=== PATIENT | male | born 1960 | race Caucasian/White ===

== ENCOUNTER 2023-06-04 20:58 | Inpatient (IN) | payer BC ==
[~2023-06-04] VITALS: Ht 177.8 cm; Wt 139.9 kg
[2023-06-04 21:00] VITALS: BP 130/78
[2023-06-04] MEDS ORDERED: JARDIANCE10 MG PO (21:39)
[2023-06-04] MEDS ORDERED: LASIX40 MG PO (21:39)
[2023-06-04] MEDS ORDERED: JANUMET XR 1001 EACH PO (21:39)
[2023-06-04] MEDS ORDERED: COLCHICINE0.6 M1 PO (21:40)
[2023-06-04 21:55] LABS: HEMATOCRIT 50.2 % (42.0-52.0); MANUAL DIFF REFLEX YES; MEAN CELL VOLUME 84.9 fl (80.0-94.0); MEAN CORPUSCULAR HGB 27.7 pg (27.0-31.0); MEAN CORPUSCULAR HGB CONC 32.7 g/dl (33.0-37.0); MEAN PLATELET VOLUME 10.3 fl (9.6-12.3); PLATELET COUNT AUTOMATED 187 10*3/uL (130-400); RED BLOOD COUNT 5.91 10*6/uL (4.50-5.90); RED CELL DISTRI WIDTH 12.9 % (0-14.5); WHITE BLOOD COUNT 22.6 10*3/uL (4.8-10.8)
[2023-06-04 22:08] LABS: ACT PARTIAL THROMBO TIME 28.7 SECONDS (20.0-32.1)
[2023-06-04 22:13] LABS: PLATELET SUFFICIENCY NORMAL (NORMAL); TOTAL CELLS COUNTED 100 #CELLS
[2023-06-04 22:15] LABS: POTASSIUM 3.7 mmol/L (3.4-5.1); TOTAL PROTEIN 7.3 gm/dL (6.0-8.0)
[2023-06-04 23:04] LABS: BILIRUBIN Negative (Negative); BLOOD Negative (Negative); CLARITY Clear (Clear); COLOR Yellow (Yellow); GLUCOSE 3+ (Negative); KETONE Negative (Negative); LEUKO ESTERASE Negative (Negative); NITRITE Negative (Negative); PH 5.5 (4.5-8.0); SPECIFIC GRAVITY 1.025 (1.001-1.030); UROBILINOGEN 0.2 E.U./dl (0.0-1.0)
[2023-06-04 23:14] LABS: RBC 0-2 rbc/hpf (0-2)
[2023-06-04 23:20] VITALS: BP 134/84
[2023-06-05] VITALS (7 sets, daily range): BP systolic 114–134; BP diastolic 48–78
[2023-06-05 05:38] LABS: FREE T4 0.96 ng/dl (0.89-1.76); POTASSIUM 3.2 mmol/L (3.4-5.1); TOTAL PROTEIN 5.9 gm/dL (6.0-8.0)
[2023-06-05 06:24] LABS: HEMATOCRIT 45.4 % (42.0-52.0); MEAN CELL VOLUME 86.1 fl (80.0-94.0); MEAN CORPUSCULAR HGB 27.9 pg (27.0-31.0); MEAN CORPUSCULAR HGB CONC 32.4 g/dl (33.0-37.0); PLATELET COUNT AUTOMATED 176 10*3/uL (130-400); RED BLOOD COUNT 5.27 10*6/uL (4.50-5.90); RED CELL DISTRI WIDTH 13.2 % (0-14.5); WHITE BLOOD COUNT 18.4 10*3/uL (4.8-10.8)
[2023-06-05 06:34] LABS: MANUAL DIFF REFLEX YES
[2023-06-05 06:49] LABS: TOTAL CELLS COUNTED 100 #CELLS
[2023-06-05 06:50] LABS: BURR CELLS FEW; PLATELET SUFFICIENCY NORMAL (NORMAL); POLYCHROMASIA SLIGHT; TOXIC GRANULATION SLIGHT; VACUOLATION OF NEUTROPHILS SLIGHT
[2023-06-05 08:00] LABS: ARTERIAL BLOOD GAS PH 7.317 (7.35-7.45)
[2023-06-05 11:39] LABS: ARTERIAL BLOOD GAS PH 7.379 (7.35-7.45)
[2023-06-05 11:40] LABS: ABG BASE EXCESS -6.9 mmol/L (-2.0-2.0)
[2023-06-06] VITALS: BP 107/53
[2023-06-06 06:01] LABS: POTASSIUM 3.8 mmol/L (3.4-5.1)
[2023-06-06 06:24] LABS: MEAN CELL VOLUME 86.5 fl (80.0-94.0); MEAN CORPUSCULAR HGB 27.9 pg (27.0-31.0); MEAN CORPUSCULAR HGB CONC 32.3 g/dl (33.0-37.0); MEAN PLATELET VOLUME 10.9 fl (9.6-12.3); PLATELET COUNT AUTOMATED 158 10*3/uL (130-400); RED BLOOD COUNT 4.51 10*6/uL (4.50-5.90); RED CELL DISTRI WIDTH 13.3 % (0-14.5); WHITE BLOOD COUNT 22.2 10*3/uL (4.8-10.8)
[2023-06-06 06:28] LABS: MANUAL DIFF REFLEX YES
[2023-06-06 06:59] LABS: BASOPHILS 1 % (0-1); TOTAL CELLS COUNTED 100 #CELLS
[2023-06-06 07:00] LABS: BURR CELLS FEW; DOHLE BODIES FEW; PLATELET SUFFICIENCY NORMAL (NORMAL); POLYCHROMASIA SLIGHT; TOXIC GRANULATION SLIGHT
[2023-06-06 08:00] VITALS: BP 117/67
[2023-06-06 12:00] VITALS: BP 123/65
[2023-06-06 16:00] VITALS: BP 124/81
[2023-06-06 20:00] VITALS: BP 106/55
[2023-06-07] VITALS: BP 132/79
[2023-06-07 06:14] LABS: BUN 22 mg/dl (9-23); CHLORIDE 104 mmol/L (98-107); POTASSIUM 4.2 mmol/L (3.4-5.1)
[2023-06-07 06:15] LABS: BASO # 0.1 10*3/uL (0.0-0.1); BASO % 0.5 % (0.0-1.0); EOS # 0.2 10*3/uL (0.0-0.4); HEMATOCRIT 39.2 % (42.0-52.0); LYMPH # 1.5 10*3/uL (1.3-4.4); LYMPH % 8.3 % (27.0-41.0); MEAN CELL VOLUME 86.9 fl (80.0-94.0); MEAN CORPUSCULAR HGB 27.7 pg (27.0-31.0); MEAN CORPUSCULAR HGB CONC 31.9 g/dl (33.0-37.0); MONO % 5.4 % (3.0-9.0); NEUT # 15.5 10*3/uL (2.3-7.9); NEUT % 83.4 % (47.0-73.0); PLATELET COUNT AUTOMATED 166 10*3/uL (130-400); RED BLOOD COUNT 4.51 10*6/uL (4.50-5.90); RED CELL DISTRI WIDTH 13.2 % (0-14.5); WHITE BLOOD COUNT 18.6 10*3/uL (4.8-10.8)
[2023-06-07 08:00] VITALS: BP 124/68
[2023-06-07 12:00] VITALS: BP 137/73
[2023-06-07 16:00] VITALS: BP 133/74
[2023-06-07 20:00] VITALS: BP 114/52
[2023-06-08] VITALS: BP 128/68
[2023-06-08 08:00] VITALS: BP 108/49
[2023-06-08 12:00] VITALS: BP 131/69
[2023-06-08 16:00] VITALS: BP 126/62
[2023-06-08 20:00] VITALS: BP 136/59
[2023-06-09] VITALS: BP 159/63
[2023-06-09 06:31] LABS: BUN 21 mg/dl (9-23); CHLORIDE 104 mmol/L (98-107); POTASSIUM 4.1 mmol/L (3.4-5.1)
[2023-06-09 06:42] LABS: HEMATOCRIT 42.5 % (42.0-52.0); MEAN CELL VOLUME 86.6 fl (80.0-94.0); MEAN CORPUSCULAR HGB 27.5 pg (27.0-31.0); MEAN CORPUSCULAR HGB CONC 31.8 g/dl (33.0-37.0); MEAN PLATELET VOLUME 10.8 fl (9.6-12.3); PLATELET COUNT AUTOMATED 212 10*3/uL (130-400); RED BLOOD COUNT 4.91 10*6/uL (4.50-5.90); RED CELL DISTRI WIDTH 13.5 % (0-14.5); WHITE BLOOD COUNT 13.3 10*3/uL (4.8-10.8)
[2023-06-09 06:44] LABS: MANUAL DIFF REFLEX YES
[2023-06-09 08:00] VITALS: BP 176/79
[2023-06-09 08:19] LABS: TOTAL CELLS COUNTED 100 #CELLS
[2023-06-09 08:20] LABS: BURR CELLS FEW; PLATELET SUFFICIENCY NORMAL (NORMAL); POLYCHROMASIA SLIGHT; TOXIC GRANULATION SLIGHT
[2023-06-09] MEDS ORDERED: DOXYCYCLINE HY100 M3 PO (10:11)
== END 2023-06-09 11:40 | disposition home or self-care (01) | DRG 871 ==
LOC: ED 20:58 → 4E 06-05 01:06 → EDHOLD 06-05 01:06 → 4E 06-05 02:03
PROVIDERS: Family Medicine; Internal Medicine; Internal Medicine Critical Care Medicine; Registered Nurse; ADMIT Internal Medicine; ATTEND Internal Medicine
PROC: 5A09357 Assistance with Respiratory Ventilation, Less than 24 Consecutive Hours, Continuous Positive Airway Pressure (ICD-10-PCS; principal; 2023-06-05)
PROC: 5A09357 Assistance with Respiratory Ventilation, Less than 24 Consecutive Hours, Continuous Positive Airway Pressure (ICD-10-PCS; 2023-06-07)
DX: A41.9 Sepsis, unspecified organism (principal); E43 Unspecified severe protein-calorie malnutrition; J96.01 Acute respiratory failure with hypoxia; N17.0 Acute kidney failure with tubular necrosis; G93.41 Metabolic encephalopathy; J15.69 Pneumonia due to other Gram-negative bacteria; E87.20 Acidosis, unspecified; Z68.41 Body mass index [BMI] 40.0-44.9, adult; R65.20 Severe sepsis without septic shock; E11.65 Type 2 diabetes mellitus with hyperglycemia; E83.42 Hypomagnesemia; R74.01 Elevation of levels of liver transaminase levels; E87.6 Hypokalemia; E83.39 Other disorders of phosphorus metabolism; G47.33 Obstructive sleep apnea (adult) (pediatric); C61 Malignant neoplasm of prostate; Z88.8 Allergy status to other drugs, medicaments and biological substances; Z91.040 Latex allergy status; Z82.49 Family history of ischemic heart disease and other diseases of the circulatory system; Z80.42 Family history of malignant neoplasm of prostate